=== PATIENT | female | born 1950 | race Caucasian/White ===

== ENCOUNTER 2019-10-19 10:26 | Emergency (ER) | payer MEDICARE, OTHER ==
[~2019-10-19] VITALS: Ht 162.6 cm; Wt 72.6 kg
[2019-10-19] MEDS ORDERED: TRULICITY SQ (10:41)
[2019-10-19] MEDS ORDERED: METF-442 PO (10:41)
--- NOTE | 2019-10-19 10:45 | NUR ---
[email or web address], medical screening exam in progress
[2019-10-19] MEDS ORDERED: IV NORMAL SALINE 1000 ML BAG IV ONE (11:00)
[2019-10-19 11:10] LABS: BASOPHILS % (AUTO) 0.5 % (0.0-2.0); EOSINOPHILS # (AUTO) 0.1 K/uL (0.0-0.7); EOSINOPHILS % (AUTO) 1.9 % (0.0-7.0); HEMATOCRIT 36.8 % (31.2-41.9); HEMOGLOBIN 12.3 g/dL (10.9-14.3); LYMPHOCYTES # (AUTO) 2.2 K/uL (20.0-40.0); LYMPHOCYTES % (AUTO) 35.8 % (20.5-51.5); MEAN CORPUSCULAR HEMOGLOBIN 28.1 uug (24.7-32.8); MEAN CORPUSCULAR HGB CONC 34 g/dL (32.3-35.6); MEAN CORPUSCULAR VOLUME 83.8 fL (75.5-95.3); MONOCYTES # (AUTO) 0.5 K/uL (2.0-10.0); MONOCYTES % (AUTO) 8.3 % (0.0-11.0); NEUTROPHILS # (AUTO) 3.4 K/uL (1.8-8.9); NEUTROPHILS % (AUTO) 53.5 % (38.5-71.5); PLATELET COUNT (AUTO) 257 K/uL (179-408); RED BLOOD CELL COUNT(AUTO) 4.39 MIL/uL (3.63-4.92); WHITE BLOOD COUNT (AUTO) 6.3 K/uL (3.8-11.8)
[2019-10-19 11:19] LABS: CREATININE 0.9 mg/dL (0.6-1.3); POTASSIUM 4.2 mmol/L (3.5-5.1)
[2019-10-19 11:26] LABS: BILIRUBIN,DIRECT 0.1 mg/dL (0.0-0.2); BILIRUBIN,TOTAL 0.5 mg/dL (0.2-1.0); TOTAL PROTEIN, SERUM 7.3 g/dL (6.4-8.2)
[2019-10-19 11:35] LABS: THYROID STIMULATING HORMONE 2.337 mIU/mL (0.358-3.740)
[2019-10-19 11:42] LABS: *BILIRUBIN,URIN NEGATIVE (NEGATIVE); *BLOOD, URINE TRACE (NEGATIVE); *CLARITY,URINE CLEAR (CLEAR); *COLOR,URINE YELLOW (YELLOW); *KETONES,URINE NEGATIVE (NEGATIVE); *UROBILINOGEN,URINE 0.2 E.U./dl (NORMAL); LEUKOCYTE ESTERASE ,URINE NEGATIVE (NEGATIVE); NITRITE, URINE NEGATIVE (NEGATIVE); PH,URINE 5.5 (5.0-8.0); UGLUCOSE NEGATIVE (NEGATIVE)
[2019-10-19 11:45] LABS: BACTERIA,URINE NONE SEEN /HPF (NONE SEEN); RBC,URINE 0-3 /HPF (0-3); SQUAMOUS EPITHELIAL CELL,UR FEW /HPF (NONE SEEN); WBC,URINE NONE SEEN /HPF (0-3)
[2019-10-19 11:47] LABS: MUCUS,URINE NONE SEEN /LPF (0-FEW)
--- NOTE | 2019-10-19 12:10 | NUR ---
IV removed. Catheter intact and site benign. Pressure and 4x4 gauze applied to site. No bleeding noted. Patient discharged to home in stable condition with steady gait. Written and verbal after care instructions given to patient and patient's . Patient and spouse verbalized understanding of instructions. Stressed follow up with PMD or return to ER for worsening s/s.
== END 2019-10-19 12:17 | disposition home or self-care (01) ==
LOC: ER 10:26
DX: R53.83 Other fatigue (principal); R53.1 Weakness; E11.65 Type 2 diabetes mellitus with hyperglycemia; Z79.84 Long term (current) use of oral hypoglycemic drugs
CPT/HCPCS: 36415; 70030-TC; 71046; 84443; 85025; 93005; A4663; J7030

== ENCOUNTER 2020-10-13 12:20 | Emergency (ER) | payer MEDICARE, OTHER ==
[~2020-10-13] VITALS: Ht 162.6 cm; Wt 72.6 kg
[~2020-10-13 12:20] MED LIST: METF-442 PO; TRULICITY SQ
[2020-10-13 13:12] LABS: *BILIRUBIN,URIN NEGATIVE (NEGATIVE); *BLOOD, URINE 2+ (NEGATIVE); *COLOR,URINE YELLOW (YELLOW); *KETONES,URINE NEGATIVE (NEGATIVE); *UROBILINOGEN,URINE 0.2 E.U./dl (NORMAL); LEUKOCYTE ESTERASE ,URINE 1+ (NEGATIVE); NITRITE, URINE POSITIVE (NEGATIVE); UGLUCOSE NEGATIVE (NEGATIVE)
[2020-10-13 13:16] LABS: *CLARITY,URINE SLIGHTLY CLOUDY (CLEAR)
--- NOTE | 2020-10-13 13:18 | NUR ---
[email or web address], medical screening exam in progress
[2020-10-13 13:21] LABS: RBC,URINE 50-80 /HPF (0-3); SQUAMOUS EPITHELIAL CELL,UR NONE SEEN /HPF (NONE SEEN)
--- NOTE | 2020-10-13 13:23 | NUR ---
[facility] rehabilitator#[id number] was used with MD & patient.
[2020-10-13 13:25] LABS: BACTERIA,URINE NONE SEEN /HPF (NONE SEEN); MUCUS,URINE NONE SEEN /LPF (0-FEW)
--- NOTE | 2020-10-13 13:35 | NUR ---
Patient taken to get CT at this time
--- NOTE | 2020-10-13 13:58 | NUR ---
Patient returned from CT at this time
[2020-10-13 13:59] LABS: BASOPHILS % (AUTO) 0.5 % (0.0-2.0); EOSINOPHILS # (AUTO) 0.1 K/uL (0.0-0.7); EOSINOPHILS % (AUTO) 1.1 % (0.0-7.0); HEMATOCRIT 37.3 % (31.2-41.9); HEMOGLOBIN 12.3 g/dL (10.9-14.3); LYMPHOCYTES # (AUTO) 2.5 K/uL (20.0-40.0); LYMPHOCYTES % (AUTO) 28.3 % (20.5-51.5); MEAN CORPUSCULAR HEMOGLOBIN 27.5 uug (24.7-32.8); MEAN CORPUSCULAR HGB CONC 33 g/dL (32.3-35.6); MEAN CORPUSCULAR VOLUME 83.7 fL (75.5-95.3); MONOCYTES # (AUTO) 0.5 K/uL (2.0-10.0); MONOCYTES % (AUTO) 5.4 % (0.0-11.0); NEUTROPHILS # (AUTO) 5.6 K/uL (1.8-8.9); NEUTROPHILS % (AUTO) 64.7 % (38.5-71.5); PLATELET COUNT (AUTO) 288 K/uL (179-408); RED BLOOD CELL COUNT(AUTO) 4.46 MIL/uL (3.63-4.92); WHITE BLOOD COUNT (AUTO) 8.7 K/uL (3.8-11.8)
[2020-10-13 14:18] LABS: CREATININE 0.8 mg/dL (0.6-1.3); POTASSIUM 3.9 mmol/L (3.5-5.1)
[2020-10-13 14:23] LABS: BILIRUBIN,DIRECT 0.1 mg/dL (0.0-0.2); BILIRUBIN,TOTAL 0.5 mg/dL (0.2-1.0); TOTAL PROTEIN, SERUM 7.4 g/dL (6.4-8.2)
[2020-10-13] MEDS ORDERED: HYDR-3972 PO (14:51)
[2020-10-13] MEDS ORDERED: DOXY100C2 PO (14:51)
--- NOTE | 2020-10-13 15:27 | NUR ---
Patient discharged to home in stable condition. Written and verbal after care instructions given. Patient verbalizes understanding of instructions. Stressed follow up or return to ER for worsening s/s.
[2020-10-13] MEDS ORDERED: TDAP DIPH,PERTUSS,TET VAC/PF 0.5 ML DISP.SYRIN IM ONE (15:55)
[2020-10-13 16:02] VITALS: BP 110/64
== END 2020-10-13 15:27 | disposition home or self-care (01) ==
LOC: ER 12:20
DX: N12 Tubulo-interstitial nephritis, not specified as acute or chronic (principal); E11.9 Type 2 diabetes mellitus without complications; Z79.899 Other long term (current) drug therapy; Z79.84 Long term (current) use of oral hypoglycemic drugs; K76.0 Fatty (change of) liver, not elsewhere classified; J84.9 Interstitial pulmonary disease, unspecified
CPT/HCPCS: 36415; 70030-TC; 83605; 83690; 85025; 87040; 87086; 90715; 93005; A4663

== ENCOUNTER 2020-11-07 23:03 | Emergency (ER) | payer MEDICARE, OTHER ==
[~2020-11-07] VITALS: Ht 167.6 cm; Wt 68.0 kg
[~2020-11-07 23:03] MED LIST changes: +DOXY100C2 PO; +HYDR-3972 PO
[2020-11-07 23:55] LABS: HEMATOCRIT 35.2 % (31.2-41.9); MEAN CORPUSCULAR HEMOGLOBIN 27.7 uug (24.7-32.8); MEAN CORPUSCULAR VOLUME 83.9 fL (75.5-95.3); PLATELET COUNT (AUTO) 245 K/uL (179-408)
[2020-11-08 00:02] LABS: CARBON DIOXIDE 26 mmol/L (21-32); CHLORIDE 102 mmol/L (98-107); CREATININE 0.8 mg/dL (0.6-1.3); GLUCOSE 138 mg/dL (74-106); POTASSIUM 4.2 mmol/L (3.5-5.1); UREA NITROGEN, BLOOD 22 mg/dL (7-18)
[2020-11-08 00:08] LABS: ALANINE AMINOTRANSFERASE < 6 U/L (14-59); ALKALINE PHOSPHATASE 60 U/L (50-136); ASPARTATE AMINOTRANSFERASE 17 U/L (15-37); BILIRUBIN,DIRECT 0.1 mg/dL (0.0-0.2); BILIRUBIN,TOTAL 0.3 mg/dL (0.2-1.0); TOTAL PROTEIN, SERUM 7.2 g/dL (6.4-8.2)
[2020-11-08] MEDS: MAGNESIUM SULFATE/D5W 100 ML IV SCH ×2 (00:15→02:09)
[2020-11-08] MEDS ORDERED: MAGNESIUM SULFATE/D5W 200 ML ONE (00:19)
[2020-11-08] MEDS ORDERED: ASPI81TA31 PO (00:30)
[2020-11-08] MEDS ORDERED: CYAN-10 IM (00:30)
[2020-11-08] MEDS ORDERED: OMEP40CA21 PO (00:30)
[2020-11-08] MEDS ORDERED: SIMV-49 PO (00:30)
[2020-11-08] MEDS ORDERED: HYDR25TA4 PO (00:30)
[2020-11-08] MEDS ORDERED: METO-358 PO (00:30)
[2020-11-08 00:43] LABS: *BILIRUBIN,URIN NEGATIVE (NEGATIVE); *CLARITY,URINE CLEAR (CLEAR); *COLOR,URINE YELLOW (YELLOW); *KETONES,URINE NEGATIVE (NEGATIVE); *UROBILINOGEN,URINE 0.2 E.U./dl (NORMAL); LEUKOCYTE ESTERASE ,URINE 2+ (NEGATIVE); NITRITE, URINE NEGATIVE (NEGATIVE); UGLUCOSE NEGATIVE (NEGATIVE)
[2020-11-08 00:44] LABS: *BLOOD, URINE TRACE (NEGATIVE)
[2020-11-08 00:50] LABS: BACTERIA,URINE FEW /HPF (NONE SEEN); SQUAMOUS EPITHELIAL CELL,UR FEW /HPF (NONE SEEN)
[2020-11-08] MEDS ORDERED: CEFTRIAXONE 1 G in IV DEXTROSE 5% 50 ML IV ONE (02:00)
[2020-11-08] MEDS ORDERED: CEFTRIAXONE /D5W 50ML IVPB **ER PYXIS IV ONE (02:18)
[2020-11-08] MEDS ORDERED: ONDA4TAB5 PO (02:38)
[2020-11-08] MEDS ORDERED: SULF1TAB48 PO (02:38)
[2020-11-08 02:57] VITALS: BP 135/73
== END 2020-11-08 02:59 | disposition home or self-care (01) ==
LOC: ER 23:04
DX: S09.90XA Unspecified injury of head, initial encounter (principal); W18.30XA Fall on same level, unspecified, initial encounter; Y92.89 Other specified places as the place of occurrence of the external cause; N39.0 Urinary tract infection, site not specified; E83.42 Hypomagnesemia; I49.3 Ventricular premature depolarization; E11.9 Type 2 diabetes mellitus without complications; Z79.84 Long term (current) use of oral hypoglycemic drugs; Z79.82 Long term (current) use of aspirin; I10 Essential (primary) hypertension
CPT/HCPCS: 36415; 70450; 72125; 80048; 80076; 81001; 83735; 84484; 85025; 85379; 85730; 87086; 93005; 96365; 96375; 99285; J0696; J3475; 70030-TC